=== PATIENT | male | born 1950 | race Caucasian/White ===

== ENCOUNTER → 2019-06-03 13:54 | Outpatient (CLI) | payer OTHER ==
--- NOTE | 2019-06-08 08:56 | EC ---
PATIENT:CARMEN STARK DATE OF SERVICE: 06/03/19 SEX: M MEDICAL RECORD: [id number] DATE OF : 50 [facility]GE [facility] PATIENT: 69 ADMISSION DATE: 06/03/19 REFERRING PHYSICIAN: INTERPRETING PHYSICIAN: IRASEMA ACOSTA MD ECHOCARDIOGRAM REPORT ECHO CHARGES 4 ECHO COMPLETE Date: 06/03/19 CLINICAL DIAGNOSIS: DYSPNEA/LVH H/O HTN/CAD ECHOCARDIOGRAPHIC MEASUREMENTS (adult normal given) AC root (d.<3.7cm) 3.4 cm LV Septum d (<1.2 cm> 1.1 cm Valve Excursion 2.1 cm LV Septum (systole) 1.9 cm Left Atria (s.<4.0cm> 5.0 cm LVPW d(<1.2cm) 1.1 cm RV (d.<2.3cm) 3.0 cm LVPW (sytole) 1.9 cm LV diastole(<5.6CM) 5.5 cm MV E-F(>70mm/sec) cm LV systole 2.8 cm LVOT Diameter 1.9 cm MV exc.(>10mm) cm Est.ejection fraction (50-75%) % DOPPLER: LVIT cm/sec A 67.0 cm/sec E 87.0 cm/sec LA cm/sec RVSP 16.4 mmHg LVOT 104 cm/sec AOP1/2T m/s Asc. Ao 141 cm/sec RVOT 64.0 cm/sec RA cm/sec PA 86.0 cm/sec AV Gradient Peak 8.0 mmHg AV Mean 4.5 mmHg AV Area 1.9 cm MV Gradient Peak 2.9 mmHg MV Mean 0.81 mmHg MV Area cm COMMENTS: OP - HC Quarter Inspector: 1 PER JAYLYN Underwriting Support Specialist: 3 Dr. Harris TAPE# PACS Pericardial Effusion N DATE OF SERVICE: Adequate 2D, color flow, spectral Doppler, and M-mode. No LVH. LV internal dimension is normal. Wall motion is normal. EF is greater than or equal to 55%. Aortic valve is tricuspid. No evidence of stenosis by Doppler interrogation. Left atrium is dilated at 5 cm. Mitral valve shows no prolapse. Trace MR. Right-sided chambers are grossly normal. Trace TR. TRANSINT:[id number] Voice Confirmation ID: [id number] DOCUMENT ID: [id number] ECHOCARDIOGRAM REPORT [id number] CARMEN STARK,IRASEMA Pratt MD at [id number] CC: [id number] DICTATION DATE: 06/07/19 1446 TESTER ARMATURE OR FIELDS: 06/07/19 1634 DEP CLI 06/03/19 [place] [id number] [place] [id number]
== END | disposition home or self-care (01) ==
LOC: D.HCCECHO 13:54
PROVIDERS: ATTEND Internal Medicine Interventional Cardiology
DX: I25.10 Atherosclerotic heart disease of native coronary artery without angina pectoris (principal)